=== PATIENT | male | born 1955 | race Hispanic/Latino ===

== ENCOUNTER 2018-08-11 15:18 | Observation (INO) | payer BC, OTHER ==
[2018-08-11] MEDS ORDERED: HYDRALAZINE HCL 20 MG/ML VIAL IV PRN (17:16)
[2018-08-11] MEDS ORDERED: MORPHINE 4 MG/ML SYR IV PRN (17:16)
[2018-08-11 17:27] LABS: Absolute Lymphocytes (CBC) 1.9 K/uL (0.7-4.9); Absolute Monocytes 1.2 K/uL (0.1-1.3); Absolute Neutrophil 6.8 K/uL (1.8-8.0); Basophils % 0.7 % (0-1.3); Eosinophils % 2.5 % (0-4.4); Hematocrit 36.4 % (39.6-49.0); Lymphocytes % 18.8 % (15.3-44.8); MPV 8.3 fL (7.6-11.3); Monocytes % 11.6 % (3.3-12.3); RBC Red Blood Cell Count 4.23 M/uL (4.33-5.43)
[2018-08-11] MEDS: NACHLORIDE 0.45% 1,000 ML IV SCH (18:02)
--- NOTE | 2018-08-11 18:02 | RAD REPORT ---
EXAM DESCRIPTION: CT - Stone Protocol - 08/11/2018 5:34 pm CLINICAL HISTORY: Abdominal pain. Left lower quadrant pain COMPARISON: 2012 TECHNIQUE: Computed axial tomography of the abdomen pelvis was obtained without oral or IV contrast. Lack of IV and oral contrast limits evaluation of solid organs, bowel, and vessels. Coronal reformat kalani images were obtained and reviewed. All CT scans are performed using dose optimization technique as appropriate and may include automated exposure control or mA/KV adjustment according to patient size. FINDINGS: 3 millimeter left renal calculus. No hydronephrosis. A right renal calculus is not seen. An ureteral calculus is not noted. A bladder calculus is not present. Chronic right middle lobe atelectasis The liver, spleen, pancreas and adrenals appear grossly normal There is no evidence of diverticulitis. A lymphadenopathy is present along the left and right common and external iliac chains. Bilateral ope rator lymphadenopathy is present. The largest lymph nodes measure up to 25 millimeters in short axis. Periaortic/caval lymph node measures 19 millimeters Prominent soft tissue is present within the region of the posterior base of the bladder and anterior prostate gland. IMPRESSION: Small nonobstructing left renal calculus Moderate pelvic lymphadenopathy Prominent soft tissue within the region of the anterior prostate/posterior bladder likely representin g neoplasm. Prostate malignancy is considered a little bit more likely than bladder malignancy.
[2018-08-11 18:13] LABS: Albumin 2.8 g/dL (3.4-5.0); Bilirubin Total 0.7 mg/dL (0.2-1.0); Potassium 4.2 mmol/L (3.5-5.1); Protein, Total 7.9 g/dL (6.4-8.2)
--- NOTE | 2018-08-11 18:23 | EKG ---
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
[2018-08-11] MEDS ORDERED: CIPROFLOXACIN HCL 500 MG TAB PO ONE (22:15)
[2018-08-12] MEDS: NACHLORIDE 0.45% 1,000 ML IV SCH ×3 (00:05→17:00)
[2018-08-12 14:12] LABS: Urine Appearance CLOUDY; Urine Bilirubin NEGATIVE (NEG); Urine Blood 3+ (NEG); Urine Color DK YELLOW; Urine Glucose NEGATIVE (NEG); Urine Protein 2+ (NEG); Urine Specific Gravity 1.015 (1.005-1.030)
[2018-08-12 14:23] LABS: Urine Microscopic Reflex ORDER UMIC
[2018-08-12 14:24] LABS: Urine Bacteria 20-50 /HPF (NONE SEEN); Urine Culture Reflex Order REFLEXED; Urine RBC >50 /HPF (NONE SEEN)
--- NOTE | 2018-08-12 18:12 | CON ---
History Of Present Illness: This is a 63-year-old gentleman who came in for left-sided abdominal pain. He got a CT scan that showed a small stone in the left kidney, nonobstructive. No hydronephrosis. No ureteral calculus. He did have a bulky lesion on the prostate that seems to be invading the bladder suggestive of prostate cancer. He had moderate bilateral pelvic lymphadenopathy in the obturator region consistent with prostate cancer. The patient's PSA is elevated. PSA was 19.6 done 08/11/2018. It was all consistent with prostate cancer. Allergies: TO PENICILLIN. Home Medications: None. Past Medical History: Hypertension. Past Surgery History: Appendectomy. Immunizations: Up to date. Social History: Lives with family. is present in the room, daughter and grandchild present. Review of Systems: Otherwise negative. Physical Examination: Vital Signs: 97.6, 88, 16, 161/86, 97% saturation. HEENT: Atraumatic and normocephalic. HEART: S1, S2. Lungs: Clear. Abdomen: Soft, nontender. : Both testicles descended. Phallus normal. No lesions. ELIZABETH; very hard, rock hard prostate, possible stage T4. Rectal tone is normal. Extremities: Normal range of motion. Laboratory Data: PSA 19.6 as mentioned above. Chemistries pretty much okay except for creatinine 1.5 with a GFR of 47. Hematology shows normal white count 10.3, H and H 12 and 36, platelet count 247. Urinalysis not performed. Assessment: Most likely local, regional prostate cancer with pelvic lymphadenopathy, is more likely a T4 N+ possible M0 prostate cancer. He will need a bone scan to rule out further metastasis, especially with pain in the left hip region. I would recommend we get Dr. Shetty involved for possible radiation and androgen deprivation for this patient if he is still localized to the pelvis. Biopsy for confirmation next week. CELSO/ALCIDES Voice ID: [id number] Report ID: [id number] CARMELO
--- NOTE | 2018-08-12 19:48 | HP ---
Date of Admission: 08/11/2018 Chief Complaint: Hematuria, left lower quadrant pain. History Of Present Illness: A 63-year-old male, was brought to the office after 2 years of hiatus in followup visits, with hematuria. His urine showed mario blood. In view of his abdominal pain, the patient was admitted for observation. The patient denied any history of vomiting of blood, diarrhea. The patient did have low-grade fever and chills at home. Past Medical History: Positive for hypertension, however, he is not taking any medications currently . He had elevated PSA. He was advised urology consultation. However, he has not seen anybody yet. Family History: Noncontributory. Personal History: He is allergic to penicillins. Home Medicines: None. Review of Systems: No chest pain or shortness of breath. Physical Examination: General: Revealed a 63-year-old male with [id number] pain. Vital Signs: Temperature in the office was 100. HEENT: Otherwise negative. Neck: Supple. JVD negative. Chest: Clear. Heart: Regular. Abdomen: Tender left lower quadrant. Bowel sounds present. Extremities: No edema. Laboratory Data: PSA elevated. CAT scan of the abdomen showed mass-like lesion in the bladder and p rostate area. PSA 19.6, BUN 25, creatinine 1.5. Assessment: 1.Hematuria. 2.Probable prostate cancer. Rule out prostatitis. 3.Hypertension, on no medications. Plan: The patient received IV Apresoline p.r.n. for his blood pressure. He received oral Cipro. Fo r some reason, urinalysis is not done yet, even though it was ordered. Urology consultation has been requested. JHONATAN/ALCIDES Voice ID: [id number]
[2018-08-13] MEDS: NACHLORIDE 0.45% 1,000 ML IV SCH ×4 (01:40→17:58)
[2018-08-13 08:55] VITALS: O2SAT 99
--- NOTE | 2018-08-13 09:43 | RAD REPORT ---
EXAM DESCRIPTION: NM - Bone Imaging Whole Body - 08/13/2018 9:33 am CLINICAL HISTORY: prostate cancer r/o matastasis to bone COMPARISON: Stone Protocol dated 08/11/2018 TECHNIQUE: The patient was administered approximately 25 mCi Tc 99m MDP. Anterior and posterior whol e-body views were obtained at 3-4 hours. FINDINGS: Physiologic distribution of the radiopharmaceutical is noted with the expected amount of k idney and urinary bladder activity. Areas of periarticular activity are seen that are typical for degenerative change. Multiple foci of abnormal radiopharmaceutical accumulation are noted bilateral ribs, thoracic and lum bar spine as well as the pelvis, particularly in the region of left acetabulum. Areas of increased ra diopharmaceutical accumulation also seen in both proximal humeri. This is compatible with bony metast atic disease. IMPRESSION: Positive for bony metastatic disease as detailed.
--- NOTE | 2018-08-13 11:15 | PN ---
Subjective: The patient is doing well. His is present in the room. Objective: Vital Signs: 97.0, 84, 18, 135/67, 95% sats. Pain level is 2/10. Plan: Plan for the patient is to obtain a bone scan today. I have discussed the case with Dr. Phillip paulino. He would like a prostate biopsy to rule out a variant of prostate cancer such as small cell, si nce the PSA is low compared to the pathology in all the pelvic lymph nodes and T4 prostate cancer. I t does make sense and I agree to that. We will send stool cultures and biopsy next week. We have to ld him to stop his coagulation and we will proceed with his biopsy next week once I see him. We will also start him on Casodex 50 mg 1 p.o. daily. CELSO/ALCIDES Voice ID: [id number] Report ID: [id number]
[2018-08-13 15:49] VITALS: BMI 36.4
--- NOTE | 2018-08-14 02:02 | PN ---
The patient has less hematuria. He is ambulating in the room. His bone scan was done. It shows met astatic disease of the bones. The patient will be given these results and explained the prognosis an d required therapies. JHONATAN/ALCIDES Voice ID: [id number] Report ID: [id number]
[2018-08-14] MEDS: NACHLORIDE 0.45% 1,000 ML IV SCH (03:58)
[2018-08-14 18:28] VITALS: BP 150/90; TEMP 98.4
--- NOTE | 2018-08-24 15:12 | DS ---
Date of Discharge: 08/14/2018 Final Diagnoses: 1.Cancer of prostate with metastatic disease. 2.Hematuria related to above. 3.Hypertension. Hospital Course: This patient was brought to the office with mario hematuria. The patient initially was admitted for observation because of his pain and gross hematuria. CAT scan showed evidence of e nlarged prostate and lesion in the bladder. It also showed evidence of lymphadenopathy compatible wi th metastatic disease. The patient had urology consultation. The patient received IV antibiotic to cover any associated infection. The patient's bone scan showed evidence of bone metastatic disease. At this point, the patient was discharged home with advice to follow up in the office for further ma nagement of his CA prostate with metastatic stage. The patient was given his regular blood pressure medicine, which he was not taking at admission. JHONATAN/ALCIDES Voice ID: [id number] Report ID: [id number]
== END 2018-08-14 10:46 | disposition home or self-care (01) ==
LOC: 2ND 15:31
PROVIDERS: ADMIT Internal Medicine; ATTEND Internal Medicine
DX: C61 Malignant neoplasm of prostate (principal); C79.51 Secondary malignant neoplasm of bone; R59.0 Localized enlarged lymph nodes; I10 Essential (primary) hypertension; N20.0 Calculus of kidney; J98.11 Atelectasis
CPT/HCPCS: 36415; 74176; 76377; 78306; 80053; 81003; 81015; 84403; 85025; 87040; 87070; 87077; 87086; 87088; 87186; 87205; 93005; 96365; 96367; A9503; G0103; G0378; J0360

== ENCOUNTER 2019-01-27 15:03 | Emergency (ER) | payer OTHER ==
[2019-01-27 16:43] LABS: Absolute Lymphocytes (CBC) 1.9 K/uL (0.7-4.9); Basophils % 0.7 % (0-1.3); Hematocrit 27.4 % (39.6-49.0); Lymphocytes % 24.3 % (15.3-44.8); MPV 7.5 fL (7.6-11.3); RBC Red Blood Cell Count 3.29 M/uL (4.33-5.43)
[2019-01-27] MEDS ORDERED: MORPHINE 4 MG/ML SYR ONE (16:44)
[2019-01-27] MEDS ORDERED: ONDANSETRON 4 MG/2 ML VIAL ONE (16:44)
[2019-01-27] MEDS ORDERED: NA CHLORIDE 0.9% 1,000 ML ONE (16:44)
[2019-01-27 16:46] LABS: Urine Appearance TURBID; Urine Blood 3+ (NEG); Urine Color RED; Urine Glucose NEGATIVE (NEG); Urine Protein 2+ (NEG); Urine Specific Gravity 1.025 (1.005-1.030)
[2019-01-27 16:51] LABS: Urine Bilirubin 3+ (NEG)
[2019-01-27 16:52] LABS: Potassium 4.1 mmol/L (3.5-5.1); Protime INR 1.09
--- NOTE | 2019-01-27 16:52 | RAD REPORT ---
EXAM DESCRIPTION: CT - Stone Protocol - 01/27/2019 4:35 pm CLINICAL HISTORY: Abdominal pain, hematuria COMPARISON: CT July 2018 TECHNIQUE: Axial 5 mm thick images were obtained without oral or IV contrast. The [id number] span s the entirety of the system including uppermost abdomen and lung bases. All CT scans are performed using dose optimization technique as appropriate and may include automated exposure control or mA/KV adjustment according to patient size. FINDINGS: No hydronephrosis is present and no obstructing ureteral calculi. A 6 millimeter nonobstru cting calyx calcification present lateral mid left kidney. No suspicious renal masses. Isodense marce s and pyelonephritis are not excluded on a stone protocol CT scan. Urinary bladder is almost fully co ntracted. No bladder calculi. No significant adrenal finding. Prior imaging shows evidence for bony m etastatic disease presumably prostate in origin. No surgical clips are seen in the pelvic floor. Jennifer ent may be status post radiation therapy or surgery. Pelvic sidewall lymphadenopathy is present. Lymph node pattern is distributed differently from the y examination with overall lymphadenopathy progressive. Imaged portions of the liver, spleen and pancreas show no suspicious findings on non-contrast imaging . Gallbladder is absent. No biliary tree dilatation. No suspicious bowel findings. Left-sided diverticulosis present without diverticulitis. No hernia, mass or bulky lymphadenopathy noted. No free air, free fluid or inflammatory stranding. Innumerable bony metastatic lesions are present throughout the skeleton. Pathologic fracture is not i dentified. IMPRESSION: No hydronephrosis, obstructing calculus or acute finding. Isodense masses and pyelonephritis are not excluded on stone protocol technique. Extensive bony metastatic disease showing significant progression from the July examination. Abdominal and pelvic lymphadenopathy also progressive.
[2019-01-27 17:00] LABS: Urine Bacteria <20 /HPF (NONE SEEN); Urine Culture Reflex Order REFLEXED; Urine Mucus 2+ /HPF (NONE SEEN); Urine RBC TNTC /HPF (NONE SEEN)
[2019-01-27] MEDS ORDERED: FENTANYL 25 MCG/PATCH TD ONE (17:55)
[2019-01-27] MEDS ORDERED: CEFTRIAXONE/SWI 1gm 1 GM/10 ML SYR ONE (17:55)
--- NOTE | 2019-01-27 18:03 | EDPHYS ---
Physician Documentation [facility] Name: Boy Torres Age: 64 yrs Sex: Male : 1955 Arrival Date: 01/27/2019 Time: 15:38 Bed 26 Private MD: ED Physician Arcenio Shook HPI: 01/27 18:13 This 64 yrs old Male presents to ER via Unassigned with complaints of blood in kb urine. 18:13 The patient presents with flank pain, described as constant, of the left flank and kb right flank. The patient presents with urinary symptoms, hematuria. Onset: The symptoms/episode began/occurred 10 day(s) ago, and became worse 3 day(s) ago. Modifying factors: The symptoms are alleviated by nothing, the symptoms are aggravated by nothing. Associated signs and symptoms: Pertinent positives: hematuria, Pertinent negatives: abdominal pain, constipation, diarrhea, dysuria, fever, nausea, vomiting. Severity of symptoms: At their worst the symptoms were moderate, in the emergency department the symptoms are unchanged. The patient has experienced similar episodes in the past. The patient has not recently seen a physician. Pt reports he had flank pain and hematuria in the past, came here and was diagnosed with Prostate Cancer with metastasis to bone and lymphnodes. States he has been on a chemo med and hormone medication and his symptoms resolved, but stopped those medications 10 days ago because they weren't helping him, his cancer was still progressing. Now awaiting insurance approval for a new treatment. Flank pain came back 10 days ago and has progressively gotten worse. States it has been worse for the past 3 days with hematuria. Called his oncology nurse and was told to take Tylenol, but came in today because he is concerned that that isn't enough for the pain. Sees Dr Alexander at [facility] for prostate cancer treatment. Historical: - Allergies: 16:00 PENICILLINS; wh - Home Meds: 16:00 amlodipine 5 mg tab 1 tab once daily [Active]; valsartan oral oral [Active]; wh - PMHx: 16:00 Prostate Cancer; Hypertension; wh - PSHx: 16:00 Cholecystectomy; Appendectomy; - Immunization history:: Adult Immunizations not up to date. - Social history:: Smoking status: Patient/guardian denies using tobacco. - Ebola Screening: : Patient negative for fever greater than or equal to 101.5 degrees Fahrenheit, and additional compatible Ebola Virus Disease symptoms Patient denies exposure to infectious person. ROS: 18:18 Constitutional: Negative for fever, chills, and weight loss, ENT: Negative for injury, kb pain, and discharge, Neck: Negative for injury, pain, and swelling, Cardiovascular: Negative for chest pain, palpitations, and edema, Respiratory: Negative for shortness of breath, cough, wheezing, and pleuritic chest pain, Abdomen/GI: Negative for abdominal pain, nausea, vomiting, diarrhea, and constipation, MS/Extremity: Negative for injury and deformity, Skin: Negative for injury, rash, and discoloration, Neuro: Negative for headache, weakness, numbness, tingling, and seizure. 18:18 : Positive for flank pain, hematuria, Negative for burning with urination, difficulty urinating, bladder incontinence. Exam: 18:18 Constitutional: This is a well developed, well nourished patient who is awake, alert, kb and in no acute distress. Head/Face: Normocephalic, atraumatic. ENT: Nares patent. No nasal discharge, no septal abnormalities noted. Tympanic membranes are normal and external auditory canals are clear. Oropharynx with no redness, swelling, or masses, exudates, or evidence of obstruction, uvula midline. Mucous membranes moist. Neck: Trachea midline, no thyromegaly or masses palpated, and no cervical lymphadenopathy. Supple, full range of motion without nuchal rigidity, or vertebral point tenderness. No Meningismus. Chest/axilla: Normal chest wall appearance and motion. Nontender with no deformity. No lesions are appreciated. Cardiovascular: Regular rate and rhythm with a normal S1 and S2. No gallops, murmurs, or rubs. Normal PMI, no JVD. No pulse deficits. Respiratory: Lungs have equal breath sounds bilaterally, clear to auscultation and percussion. No rales, rhonchi or wheezes noted. No increased work of breathing, no retractions or nasal flaring. Abdomen/GI: Soft, non-tender, with normal bowel sounds. No distension or tympany. No guarding or rebound. No evidence of tenderness throughout. Skin: Warm, dry with normal turgor. Normal color with no rashes, no lesions, and no evidence of cellulitis. MS/ Extremity: Pulses equal, no cyanosis. Neurovascular intact. Full, normal range of motion. Neuro: Awake and alert, GCS 15, oriented to person, place, time, and situation. Cranial nerves II-XII grossly intact. Motor strength 5/5 in all extremities. Sensory grossly intact. Cerebellar exam normal. Normal gait. 18:18 Back: CVA tenderness, that is mild, is noted on the right. Vital Signs: 15:45 BP 145 / 79; Pulse 81; Resp 18; Temp 97.8; Pulse Ox 100% on R/A; wh 16:30 BP 126 / 70; Pulse 70; Resp 18; Pulse Ox 100% on R/A; wh 18:00 BP 143 / 88; Pulse 76; Resp 18; Temp 97.6; Pulse Ox 100% on R/A; wh MDM: 16:36 Patient medically screened. kb 18:00 Data reviewed: vital signs, nurses notes. Data interpreted: Pulse oximetry: on room air kb is 100 %. Interpretation: normal. Counseling: I had a detailed discussion with the patient and/or guardian regarding: the historical points, exam findings, and any diagnostic results supporting the discharge/admit diagnosis, lab results, radiology results, the need for outpatient follow up, a family practitioner, Oncologist, to return to the emergency department if symptoms worsen or persist or if there are any questions or concerns that arise at home. ED course: Discussed pt's condition and diagnostics with Dr Shook. Agrees with outpatient treatment. Pt educated to follow up with Dr Alexander at [facility] for continuity of care. Verbal understanding received from pt and spouse. . 01/27 16:34 Order name: Basic Metabolic Panel; Complete Time: 17:59 EDMS 01/27 16:34 Order name: CBC with Automated Diff; Complete Time: 17:59 EDMS 01/27 16:34 Order name: PTT, Activated Partial Thromb; Complete Time: 17:59 EDMS 01/27 16:35 Order name: Protime (+INR); Complete Time: 17:59 EDMS 01/27 16:34 Order name: Stone Protocol; Complete Time: 17:59 EDMS 01/27 17:12 Order name: Urinalysis W/Microscopic; Complete Time: 17:59 EDMS 01/27 17:48 Order name: Urine Culture EDMS Administered Medications: No medications were administered Disposition: 01/28 09:28 Co-signature as Attending Physician, Arcenio Shook MD I agree with the assessment and kdr plan of care. Disposition: 01/27/19 18:01 Discharged to Home. Impression: Hematuria. - Condition is Stable. - Discharge Instructions: Hematuria, Adult. - Medication Reconciliation Form, Thank You Letter, Antibiotic Education, Prescription Opioid Use form. - Follow up: Emergency Department; When: As needed; Reason: Worsening of condition. Follow up: Private Physician; When: 2 - 3 days; Reason: Recheck today's complaints, Continuance of care, Re-evaluation by your physician. Signatures: Dispatcher [employer] [facility] Miranda Pearson, STANLEY-[employer]AR[employer] MOVING TECHNICIAN-Arcenio Zaldivar MD MD [facility] Jodran Mcfarlane Corrections: (The following items were deleted from the chart) 01/27 16:35 16:34 Protime (+INR) ordered. [facility] 18:15 18:01 01/27/2019 18:01 Discharged to Home. Impression: Hematuria. Condition is Stable. wh Forms are Medication Reconciliation Form, Thank You Letter, Antibiotic Education, Prescription Opioid Use. Follow up: Emergency Department; When: As needed; Reason: Worsening of condition. Follow up: Private Physician; When: 2 - 3 days; Reason: Recheck today's complaints, Continuance of care, Re-evaluation by your physician. kb
--- NOTE | 2019-01-27 18:17 | ER ---
Nurse's Notes [facility] Name: Boy Torres Age: 64 yrs Sex: Male : 1955 Arrival Date: 01/27/2019 Time: 15:38 Bed 26 Private MD: Diagnosis: Hematuria Presentation: 01/27 15:45 Presenting complaint: Patient states: Pt with Hx of Prostate cancer undergoing chemo in [place], C/O lower back pain that started 3 days ago and blood tinged urine. Transition of care: patient was not received from another setting of care. Onset of symptoms was January 25, 2019. Risk Assessment: Do you want to hurt yourself or someone else? Patient reports no desire to harm self or others. Initial Sepsis Screen: Does the patient meet any 2 criteria? No. Patient's initial sepsis screen is negative. Does the patient have a suspected source of infection? No. Patient's initial sepsis screen is negative. Care prior to arrival: None. 15:45 Method Of Arrival: Ambulatory 15:45 Acuity: RAVI 3 16:00 Onset of symptoms was January 25, 2019. 18:00 Onset of symptoms was January 25, 2019. 19:48 Onset of symptoms. Triage Assessment: 16:30 General: Appears in no apparent distress. Behavior is calm, cooperative, appropriate for age. Historical: - Allergies: 16:00 PENICILLINS; - Home Meds: 16:00 amlodipine 5 mg tab 1 tab once daily [Active]; valsartan oral oral [Active]; - PMHx: 16:00 Prostate Cancer; Hypertension; - PSHx: 16:00 Cholecystectomy; Appendectomy; - Immunization history:: Adult Immunizations not up to date. - Social history:: Smoking status: Patient/guardian denies using tobacco. - Ebola Screening: : Patient negative for fever greater than or equal to 101.5 degrees Fahrenheit, and additional compatible Ebola Virus Disease symptoms Patient denies exposure to infectious person. Screenin:30 Abuse screen: Denies threats or abuse. Denies injuries from another. Nutritional screening: No deficits noted. Tuberculosis screening: No symptoms or risk factors identified. Fall Risk None identified. Assessment: 15:45 General: Appears in no apparent distress. Behavior is calm, cooperative, appropriate for age. Pain: Complains of pain in right flank and left flank Pain does not radiate. Pain currently is 8 out of 10 on a pain scale. Quality of pain is described as aching, Pain began 2-3 days ago. Neuro: Level of Consciousness is awake, alert, obeys commands, Oriented to person, place, time, situation, Appropriate for age. Cardiovascular: Heart tones S1 S2 Capillary refill < 3 seconds. Respiratory: Airway is patent Respiratory effort is even, unlabored, Respiratory pattern is regular, symmetrical. GI: Abdomen is flat, non-distended, Abd is soft and non tender X 4 quads. : Reports blood in urine. EENT: No signs and/or symptoms were reported regarding the EENT system. Derm: Skin is intact, is healthy with good turgor. Musculoskeletal: Circulation, motion, and sensation intact. 17:15 Reassessment: Patient appears in no apparent distress at this time. No changes from previously documented assessment. Patient and/or family updated on plan of care and expected duration. Pain level reassessed. Patient is alert, oriented x 3, equal unlabored respirations, skin warm/dry/pink. Pt was given NS 1liter Iv Bolus, MOrphine 4 mg IVP and Zofran 4 mg IVP, please see Written orders on chart. 18:10 Reassessment: Patient appears in no apparent distress at this time. No changes from previously documented assessment. Patient and/or family updated on plan of care and expected duration. Pain level reassessed. Patient is alert, oriented x 3, equal unlabored respirations, skin warm/dry/pink. Patient denies pain at this time. Patient states feeling better. Patient states symptoms have improved. Vital Signs: 15:45 BP 145 / 79; Pulse 81; Resp 18; Temp 97.8; Pulse Ox 100% on R/A; wh 16:30 BP 126 / 70; Pulse 70; Resp 18; Pulse Ox 100% on R/A; wh 18:00 BP 143 / 88; Pulse 76; Resp 18; Temp 97.6; Pulse Ox 100% on R/A; ED Course: 15:38 Patient arrived in ED. iw 16:00 Inserted saline lock: 20 gauge in right antecubital area, using aseptic technique. Blood collected. 16:30 Arm band placed on right wrist. wh 16:30 Patient has correct armband on for positive identification. Bed in low position. Call light in reach. Side rails up X 1. Pulse ox on. NIBP on. 16:36 Stone Protocol In Process Unspecified. EDIA 16:36 Miranda Pearson FNP-C is [facility]. 16:36 Arcenio Shook MD is Attending Physician. kb 18:14 Jordan Mcfarlane is Primary Nurse. 18:15 IV discontinued, intact, bleeding controlled, No redness/swelling at site. 18:15 No provider procedures requiring assistance completed. 19:44 Triage completed. Administered Medications: No medications were administered Outcome: 18:01 Discharge ordered by . kb 18:15 Discharged to home ambulatory, with family. 18:15 Condition: stable 18:15 Discharge instructions given to patient, family, Instructed on discharge instructions, follow up and referral plans. medication usage, POC Hematuria Demonstrated understanding of instructions, follow-up care, medications, POC Prescriptions given X 1. 18:15 Patient left the ED. Signatures: Dispatcher [employer] [facility] Miranda Pearson FNP-C FNP-Ckb Williams, Irene, RN RN iw Jordan Mcfarlane Corrections: (The following items were deleted from the chart) 19:51 18:10 Reassessment: Patient appears in no apparent distress at this time. No changes wh from previously documented assessment. Patient and/or family updated on plan of care and expected duration. Pain level reassessed. Patient is alert, oriented x 3, equal unlabored respirations, skin warm/dry/pink. Patient denies pain at this time. Patient states feeling better. Patient states symptoms have improved. 19:51 17:15 Reassessment: Patient appears in no apparent distress at this time. No changes wh from previously documented assessment. Patient and/or family updated on plan of care and expected duration. Pain level reassessed. Patient is alert, oriented x 3, equal unlabored respirations, skin warm/dry/pink.
== END 2019-01-27 18:15 | disposition home or self-care (01) ==
LOC: ER 15:03
DX: R31.9 Hematuria, unspecified (principal); Z88.0 Allergy status to penicillin
CPT/HCPCS: 87088; 85025; 81001; 87086; 80048; 36415; 85610; 85730; 76377; 74176; 99284; J0696; J7030; J2405

== ENCOUNTER 2019-01-30 15:50 | Emergency (ER) | payer OTHER ==
[2019-01-30] MEDS ORDERED: MORPHINE 4 MG/ML SYR ONE (16:19)
[2019-01-30] MEDS ORDERED: ONDANSETRON 4 MG/2 ML VIAL ONE (16:19)
[2019-01-30] MEDS ORDERED: NA CHLORIDE 0.9% 1,000 ML ONE (16:19)
--- NOTE | 2019-01-30 17:24 | ER ---
Nurse's Notes [facility] Name: Boy Torres Age: 64 yrs Sex: Male : 1955 Arrival Date: 01/30/2019 Time: 15:52 Bed 18 Private MD: Khanh Bernard R Diagnosis: Chronic pain, not elsewhere classified;Dehydration Presentation: 01/30 15:59 Presenting complaint: Patient states: I have prostate CA and my pain is bad, I am also la1 feeling faint. Pt is not currently on chemo. Transition of care: patient was not received from another setting of care. Onset of symptoms was January 30, 2019. Risk Assessment: Do you want to hurt yourself or someone else? Patient reports no desire to harm self or others. Initial Sepsis Screen: Does the patient meet any 2 criteria? No. Patient's initial sepsis screen is negative. Does the patient have a suspected source of infection? No. Patient's initial sepsis screen is negative. Care prior to arrival: None. 15:59 Method Of Arrival: Ambulatory la1 15:59 Acuity: RAVI 3 la1 Historical: - Allergies: 16:00 PENICILLINS; la1 - PMHx: 16:00 Hypertension; Prostate Cancer; la1 - Immunization history:: Adult Immunizations up to date. - Social history:: Smoking status: Patient/guardian denies using tobacco. - Ebola Screening: : No symptoms or risks identified at this time. - Family history:: not pertinent. - Hospitalizations: : No recent hospitalization is reported. Screenin:04 Abuse screen: Denies threats or abuse. Nutritional screening: No deficits noted. em Tuberculosis screening: No symptoms or risk factors identified. Fall Risk None identified. Assessment: 16:24 General: Appears in no apparent distress. uncomfortable, Behavior is calm, cooperative, em Denies fever. Pain: Complains of pain in posterior aspect of right lateral abdomen Pain currently is 10 out of 10 on a pain scale. Neuro: Level of Consciousness is awake, alert, obeys commands, Oriented to person, place, time, situation, Appropriate for age Reports generalized weakness . Cardiovascular: Capillary refill < 3 seconds Patient's skin is warm and dry. Respiratory: Airway is patent Respiratory effort is even, unlabored, Respiratory pattern is regular, symmetrical. GI: Abdomen is flat, Patient currently denies nausea, vomiting. : Denies burning with urination. Derm: Skin is intact, is healthy with good turgor, Skin is pink, warm \T\ dry. Musculoskeletal: Capillary refill < 3 seconds, Range of motion: intact in all extremities. 17:00 Reassessment: Patient appears in no apparent distress at this time. Patient and/or em family updated on plan of care and expected duration. Pain level reassessed. Patient is alert, oriented x 3, equal unlabored respirations, skin warm/dry/pink. 17:30 Reassessment: Patient appears in no apparent distress at this time. request second dose em of medication, provider notified, new medication orders received. 17:41 Reassessment: wants to wait 10-15 minutes after getting second dose of medication. em Vital Signs: 15:59 BP 143 / 71; Pulse 104; Resp 16; Temp 99.2; Pulse Ox 100% on R/A; Weight 108.86 kg; la1 Height 5 ft. 9 in. (175.26 cm); 16:43 BP 139 / 77; Pulse 93; Resp 18; Pulse Ox 93% on R/A; mh5 15:59 Body Mass Index 35.44 (108.86 kg, 175.26 cm) la1 ED Course: 15:52 Patient arrived in ED. as 15:52 Khanh Bernard MD is Private Physician. as 15:59 Triage completed. la1 16:00 Scotty Royal MD is Attending Physician. rn 16:00 Arm band placed on left wrist. la1 16:02 Julius Sanford LVN is Primary Nurse. em 16:24 Patient has correct armband on for positive identification. Bed in low position. Call em light in reach. Side rails up X2. Adult w/ patient. Pulse ox on. NIBP on. 16:35 Inserted saline lock: 20 gauge in right antecubital area, using aseptic technique. em 17:23 Khanh Bernard MD is Referral Physician. rn 17:52 No provider procedures requiring assistance completed. IV discontinued, intact, em bleeding controlled, No redness/swelling at site. Pressure dressing applied. Administered Medications: 16:34 Drug: NS 0.9% 1000 ml Route: IV; Rate: 1000 ml; Site: right antecubital; em 17:41 Follow up: IV Status: Completed infusion; IV Intake: 1000ml em 16:37 Drug: morphine 4 mg Route: IVP; Site: right antecubital; iw 17:00 Follow up: Response: No adverse reaction; Pain is decreased em 16:37 Drug: Zofran 4 mg Route: IVP; Site: right antecubital; iw 17:01 Follow up: Response: No adverse reaction em 17:41 Drug: morphine 2 mg Route: IVP; Site: right antecubital; em 17:52 Follow up: Response: No adverse reaction; Pain is decreased em 17:42 Not Given (Other Intervention Used): morphine 2 mg IVP once; (PAIN>8) RASS on ADMN: em Combtv4, Very Agttd3, Agttd2, Rstlss1, AlertClm0, Drwsy-1, LtSdtn-2, ModSdtn-3, DpSdtn-4, UnArsble-5 x2 Intake: 17:41 IV: 1000ml; Total: 1000ml. em Outcome: 17:23 Discharge ordered by MD. rn 17:53 Discharged to home via wheelchair, with family. em 17:53 Condition: good 17:53 Discharge instructions given to patient, family, Instructed on discharge instructions, follow up and referral plans. medication usage, Demonstrated understanding of instructions, follow-up care, medications, Prescriptions given X 1. 17:53 Patient left the ED. em Signatures: Julius Sanford, DIRECTOR APPOINTMENT DIRECTOR APPOINTMENT Italia Vides Irene, RN RN iw Nieto, Roman, MD MD rn Attema, Lee, RN RN [facility] Elza Rai [facility]
--- NOTE | 2019-01-30 17:25 | EDPHYS ---
Physician Documentation [facility] Name: Boy Torres Age: 64 yrs Sex: Male : 1955 Arrival Date: 01/30/2019 Time: 15:52 Bed 18 Private MD: Khanh Bernard R ED Physician Scotty Royal HPI: 01/30 16:58 This 64 yrs old Male presents to ER via Ambulatory with complaints of Pain All rn Over - cancer. 16:58 REports right flank pain, has been seen for this recently a few days ago, no change, rn has worsening metastatic cancer from prostate, was getting chemo and hormone therapy, but not responding. Reports has been having this pain but was better with treatment, and never given any prescription for pain medication, told to take tylenol but not working. Has been calling oncologist but no response, so came back here in hopes to control pain. Denies new symptoms.. Severity of symptoms: At their worst the symptoms were moderate in the emergency department the symptoms are unchanged. The patient has experienced similar episodes in the past, chronically. The patient has been recently seen by a physician: The patient has been recently seen at the [facility] Emergency Department. Historical: - Allergies: 16:00 PENICILLINS; la1 - PMHx: 16:00 Hypertension; Prostate Cancer; la1 - Immunization history:: Adult Immunizations up to date. - Social history:: Smoking status: Patient/guardian denies using tobacco. - Ebola Screening: : No symptoms or risks identified at this time. - Family history:: not pertinent. - Hospitalizations: : No recent hospitalization is reported. ROS: 16:58 Constitutional: Negative for fever, chills, and weight loss, Eyes: Negative for injury, rn pain, redness, and discharge, Cardiovascular: Negative for chest pain, palpitations, and edema, Respiratory: Negative for shortness of breath, cough, wheezing, and pleuritic chest pain, Abdomen/GI: Negative for abdominal pain, vomiting, diarrhea, and constipation, Back: + right flank pain : Negative for injury, bleeding, discharge, and swelling, MS/Extremity: Negative for injury and deformity, Neuro: Negative for headache, weakness, numbness, tingling, and seizure. Exam: 17:01 Constitutional: This is a well developed, well nourished patient who is awake, alert, rn and in no acute distress. Ambulatory to room without difficulty or assistance. Head/Face: Normocephalic, atraumatic. ENT: dry MM Cardiovascular: Regular rate and rhythm. No pulse deficits. Respiratory: No increased work of breathing, no retractions or nasal flaring. Abdomen/GI: soft, non-tender Back: No spinal tenderness. No costovertebral tenderness. Full range of motion. MS/ Extremity: Pulses equal, no cyanosis. Neurovascular intact. Full, normal range of motion. Equal circumference. Neuro: Awake and alert, GCS 15, oriented to person, place, time, and situation. Cranial nerves II-XII grossly intact. Motor strength 5/5 in all extremities. Sensory grossly intact. Cerebellar exam normal. Normal gait. Vital Signs: 15:59 BP 143 / 71; Pulse 104; Resp 16; Temp 99.2; Pulse Ox 100% on R/A; Weight 108.86 kg; la1 Height 5 ft. 9 in. (175.26 cm); 16:43 BP 139 / 77; Pulse 93; Resp 18; Pulse Ox 93% on R/A; mh5 15:59 Body Mass Index 35.44 (108.86 kg, 175.26 cm) la1 MDM: 16:00 Patient medically screened. rn 17:19 Differential Diagnosis cancer pain, dehydration. Data reviewed: vital signs, nurses rn notes, old medical records, and as a result, I will discharge patient. Counseling: I had a detailed discussion with the patient and/or guardian regarding: the historical points, exam findings, and any diagnostic results supporting the discharge/admit diagnosis, the need for outpatient follow up, to return to the emergency department if symptoms worsen or persist or if there are any questions or concerns that arise at home. Response to treatment: the patient's symptoms have markedly improved after treatment, and as a result, I will discharge patient. Special discussion: I discussed with the patient/guardian in detail that at this point there is no indication for admission to the hospital. It is understood, however, that if the symptoms persist or worsen the patient needs to return immediately for re-evaluation. 17:21 ED course: Already on cipro for UTI from last visit.. rn 01/30 16:16 Order name: IV Start; Complete Time: 16:34 rn Administered Medications: 16:34 Drug: NS 0.9% 1000 ml Route: IV; Rate: 1000 ml; Site: right antecubital; em 17:41 Follow up: IV Status: Completed infusion; IV Intake: 1000ml em 16:37 Drug: morphine 4 mg Route: IVP; Site: right antecubital; iw 17:00 Follow up: Response: No adverse reaction; Pain is decreased em 16:37 Drug: Zofran 4 mg Route: IVP; Site: right antecubital; iw 17:01 Follow up: Response: No adverse reaction em 17:41 Drug: morphine 2 mg Route: IVP; Site: right antecubital; em 17:52 Follow up: Response: No adverse reaction; Pain is decreased em 17:42 Not Given (Other Intervention Used): morphine 2 mg IVP once; (PAIN>8) RASS on ADMN: em Combtv4, Very Agttd3, Agttd2, Rstlss1, AlertClm0, Drwsy-1, LtSdtn-2, ModSdtn-3, DpSdtn-4, UnArsble-5 x2 Disposition: 01/30/19 17:23 Discharged to Home. Impression: Chronic pain, not elsewhere classified, Dehydration. - Condition is Stable. - Discharge Instructions: Chronic Pain, Dehydration, Adult. - Prescriptions for Tylenol- Codeine #3 300-30 mg Oral Tablet - take 1 tablet by ORAL route every 6 hours As needed; 20 tablet. - Medication Reconciliation Form, Thank You Letter, Antibiotic Education, Prescription Opioid Use form. - Follow up: Khanh Bernard MD; When: As needed; Reason: Recheck today's complaints, Re-evaluation by your physician. - Problem is chronic. - Symptoms have improved. Signatures: Julius Sanford, PRESSER FIRST PRESSER FIRST em Deborah Arroyo RN LINDA iw Scotty Royal MD MD rn Attema, Lee, RN RN la1 Corrections: (The following items were deleted from the chart) 17:01 16:58 Constitutional: Negative for fever, chills, and weight loss, Eyes: Negative for rn injury, pain, redness, and discharge, rn 17:53 17:23 01/30/2019 17:23 Discharged to Home. Impression: Chronic pain, not elsewhere em classified; Dehydration. Condition is Stable. Forms are Medication Reconciliation Form, Thank You Letter, Antibiotic Education, Prescription Opioid Use. Follow up: Khanh Bernard; When: As needed; Reason: Recheck today's complaints, Re-evaluation by your physician. Problem is chronic. Symptoms have improved. rn
[2019-01-30] MEDS ORDERED: MORPHINE 2 MG/ML SYR ONE (17:34)
[2019-01-30 21:20] VITALS: TEMP 99.2
[2019-01-30 21:21] VITALS: BP 139/77; O2SAT 93
== END 2019-01-30 17:53 | disposition home or self-care (01) ==
LOC: ER 15:50
DX: G89.29 Other chronic pain (principal); E86.0 Dehydration; Z85.46 Personal history of malignant neoplasm of prostate; Z88.0 Allergy status to penicillin
CPT/HCPCS: 96361; 96375; 96374; 99284; J2270; J7030; J2405